=== PATIENT | female | born 1960 | race Caucasian/White ===

== ENCOUNTER 2017-05-24 21:39 | Emergency (ER) | payer SELFPAY ==
[~2017-05-24] VITALS: Ht 170.2 cm; Wt 85.4 kg
[2017-05-24 21:58] VITALS: Ht 170.2 cm; Wt 85.4 kg
== END 2017-05-25 01:30 | disposition left against medical advice (07) ==
LOC: E/R 21:39
DX: Z53.21 Procedure and treatment not carried out due to patient leaving prior to being seen by health care provider (principal)

== ENCOUNTER 2018-09-21 11:09 | Day surgery (SDC) | payer OTHER ==
[~2018-09-21] VITALS: Ht 167.6 cm; Wt 83.8 kg
[2018-09-21] VITALS (12 sets, daily range): BP systolic 118–154; BP diastolic 63–79; PULSE 66–86; RESP 10–19; Ht 167.6 cm; Wt 83.8 kg
[2018-09-21] MEDS ORDERED: FENTAnyl 50 MCG/ML VIAL ONE (12:22)
[2018-09-21] MEDS ORDERED: PROPOFOL 20 ML ONE (12:22)
[2018-09-21] MEDS ORDERED: CEFAZOLIN 1 GM INJ ONE (12:22)
[2018-09-21] MEDS ORDERED: LIDOCAINE 2% (SDV) 5 ML INJ ONE (12:22)
--- NOTE | 2018-09-21 12:28 | PREAC ---
Date/Time of Note Date/Time of Note DATE: 09/21/18 TIME: 12:27 Anesthesia Eval and Record Evaluation Time Pre-Procedure Interview DATE: 09/21/18 TIME: 12:27 Age 57 Sex female NPO: 8 hrs Preoperative diagnosis endometrial hyperlasia Planned procedure hysteroscopy; D&C Past Medical History Past Medical History: Includes Cardio: HTN Surgery & Anesthesia Issues No known issue (never had anesthesia) Meds Anticoagulation: No Beta Rosa Isela within 24 hr: No Reason Beta Rosa Isela not given: Pt. not on B-Rosa Isela Meds reviewed: Yes Allergies Coded Allergies: No Known Allergies (Verified Allergy, Unknown, 09/21/18) Allergies Reviewed: Yes Labs/Studies Labs Reviewed: Reviewed by anesthesiologist test: Negative Studies: ECG, CXR Pre-procedure Exam Last vitals Vital Signs Date Temp Pulse Resp B/P (MAP) Pulse Ox O2 O2 Flow FiO2 Time Delivery Rate 09/21/18 98.5 66 16 152/75 99 Room Air 12:14 (100) Airway: Adequate mouth opening, Adequate thyromental dist Mallampati: Mallampati II Teeth: Normal Lung: Normal Heart: Normal ASA Physical Status ASA physical status: 2 Emergency: None Planned Anesthetic General/MAC: LMA Planned Pain Management Parenteral pain med, Local by surgeon Pre-operative Attestations Prior to commencing anesthesia and surgery, the patient was re-evaluated, there was verification of: *The patient's identity *The results of appropriate recent lab work and preoperative vital signs *The above evaluation not changing prior to induction *Anesthetic plan, risk benefits, alternative and complications discussed with patient/family; questions answered; patient/family understands, accepts and w ishes to proceed. GEOVANY MICHELLE Sep 21, 2018 12:28
[2018-09-21] MEDS ORDERED: hydrALAzine 20 MG INJ IV PRN (13:00)
[2018-09-21] MEDS ORDERED: LABETALOL HCL 20MG INJ IV PRN (13:00)
[2018-09-21] MEDS ORDERED: MEPERIDINE 25 MG INJ IV PRN (13:00)
[2018-09-21] MEDS ORDERED: ONDANSETRON 4 MG INJ IV PRN (13:00)
[2018-09-21] MEDS ORDERED: OXYCODONE/ACETAMINOPHEN (5/325) TAB PO PRN ×2 (13:00)
[2018-09-21] MEDS ORDERED: FENTAnyl 50 MCG/ML VIAL IV PRN ×3 (13:00)
[2018-09-21] MEDS ORDERED: LISI-471 PO (13:05)
[2018-09-21] MEDS ORDERED: OMEP20CA16 PO (13:06)
[2018-09-21] MEDS ORDERED: ERGO500013 PO (13:07)
[2018-09-21] MEDS ORDERED: ONDANSETRON 4 MG INJ ONE (13:14)
[2018-09-21] MEDS ORDERED: DEXAMETHASONE 4 MG/ML 5 ML INJ ONE (13:15)
[2018-09-21] MEDS ORDERED: METOCLOPRAMIDE 10 MG INJ ONE (13:15)
[2018-09-21] MEDS ORDERED: FAMOTIDINE 20 MG INJ ONE (13:15)
--- NOTE | 2018-09-21 13:15 | HPN ---
Date/Time of Note Date/Time of Note DATE: 09/21/18 TIME: 13:15 Interval H&P Admission Note Pt. seen H&P reviewed: No system changes DONNA LAKE MD Sep 21, 2018 13:15
[2018-09-21] MEDS ORDERED: EPHEDrine SULFATE 50 MG/5 ML SYG ONE (13:43)
--- NOTE | 2018-09-21 14:16 | SIPON ---
Date/Time of Note Date/Time of Note DATE: 09/21/18 TIME: 14:14 Operative Report Preoperative Diagnosis prominent endometrium Postoperative Diagnosis see pathologic report Operation/Procedure Performed Hysteroscopic endometrial shaving uterine curettage Surgeon see signature line gynecological assistant jk from metronic Anesthesia: general Estimated blood loss: minimal Transfusion Required none Specimen enometrial curettings Grafts/Implants none Complications none DONNA LAKE MD Sep 21, 2018 14:16
--- NOTE | 2018-09-21 14:17 | PD.PPDC ---
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
--- NOTE | 2018-09-21 14:28 | PAC ---
Date/Time of Note Date/Time of Note DATE: 09/21/18 TIME: 14:27 Post-Anesthesia Notes Post-Anesthesia Note Last documented vital signs pacu BP 154/78 HR 86 SPO2 100 RR 14 Temp 98.0 Vital Signs Date Temp Pulse Resp B/P (MAP) Pulse Ox O2 O2 Flow FiO2 Time Delivery Rate 09/21/18 98.5 66 16 152/75 99 Room Air 12:14 (100) Activity: WNL Respiratory function: WNL Cardiovascular function: WNL Mental status: Baseline Pain reasonably controlled: Yes Hydration appropriate: Yes Nausea/Vomiting absent: Yes GEOVANY MICHELLE Sep 21, 2018 14:28
--- NOTE | 2018-09-22 11:15 | OPR ---
DATE OF OPERATION: 09/21/2018 PREOPERATIVE DIAGNOSIS: Prominent endometrium. POSTOPERATIVE DIAGNOSIS: See pathological report. NAME OF PERFORMED: Hysteroscopic endometrial shaving with endometrial curettage. ANESTHESIA: General. ANESTHESIOLOGIST: Refer to the chart. SURGEON: Harsha Rey MD. 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 ESTIMATED BLOOD LOSS: Negligible. DETAILS OF PROCEDURE: Under the proper induction of general anesthesia, the patient was placed in do rsal lithotomy position. Perineal area and vagina wall were prepped and draped in usual aseptic page er. On inspection, external genitalia revealed no gross abnormality. Bimanual examination was inade quate due to the body habitus. Weighted speculum was introduced and cervix was identified. Anterior lip of cervix was grasped with a single tooth tenaculum. Cavity was sounded, which was 8 cm, and, a fter adjusting the table according to the uterine axis, hysteroscope which was connected to the dickson l saline and usual preparation, the hysteroscope was introduced into the cervix without any difficult y and visualized fundus with the 2 ostium. There is no prominent endometrium noted except in the end ocervical area, there was a nabothian cyst noted approximately 2 o'clock direction. Other than that, no abnormal finding. After the adequate distention was obtained, the endometrial hysteroscopic soft tissue shaver was introduced into the cavity and the entire uterine cavity was curetted, shaved in a ll directions. Post-curettage, the picture was taken and, before the curettage, a picture was taken. After adequate shaving done, the instruments were removed from the operative field and the traditio nal uterine curettage was additionally done, obtaining scanty tissue, which was sent with the tissue in the retriever. Procedure was completed. The patient was sent to recovery room in stable conditio n. 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
== END 2018-09-21 15:45 | disposition home or self-care (01) ==
LOC: SDS 11:09
PROVIDERS: ATTEND Obstetrics & Gynecology
DX: N85.00 Endometrial hyperplasia, unspecified (principal); I10 Essential (primary) hypertension
CPT/HCPCS: 58558; 84703; 88305; J0690; J1100; J2405; J2765; J3010; Z7512; Z7610